=== PATIENT | female | born 1950 | race Caucasian/White ===

== ENCOUNTER 2020-12-21 18:20 | Inpatient (IN) | payer BC ==
[2020-12-21] MEDS ORDERED: methylPREDNISolone NA SUCC 125 MG/2 ML VIAL IVPUSH ONE (20:22)
[2020-12-21] MEDS ORDERED: methylPREDNISolone NA SUCC 125 MG/2 ML VIAL ONE (20:38)
[2020-12-21 21:15] LABS: BASO % 0.8 % (0-2.0); HEMATOCRIT 43.7 % (32.4-45.2); HEMOGLOBIN 14.6 GM/dL (10.7-15.3); LYMPH % 16.2 % (8-40); MCH 30.5 pg (25.7-33.7); MCHC 33.4 g/dl (32.0-36.0); MEAN CELL VOLUME 91.3 fl (80-96); MEAN PLT VOLUME 8.7 fl (7.5-11.1); MONO % 11.7 % (3.8-10.2); NEUT % 67.3 % (42.8-82.8); PLATELET COUNT 468 K/MM3 (134-434); RBC 4.79 M/mm3 (3.60-5.2); RDW 13.7 % (11.6-15.6); WHITE BLOOD COUNT 10.9 K/mm3 (4.0-10.0)
[2020-12-21 21:29] LABS: CHLORIDE 104 mmol/L (98-107); POTASSIUM 4.2 mmol/L (3.5-5.1); SODIUM 140 mmol/L (136-145)
[2020-12-21 21:30] LABS: CALCIUM 9.2 mg/dL (8.5-10.1)
[2020-12-21 21:31] LABS: ALBUMIN 3.1 g/dl (3.4-5.0); ANION GAP 5 MMOL/L (8-16); BLOOD UREA NITROGEN 14.2 mg/dL (7-18); CO2 31 mmol/L (21-32); GLUCOSE,RANDOM 112 mg/dL (74-106); MAGNESIUM 2.2 mg/dL (1.8-2.4)
[2020-12-21 21:34] LABS: CREATININE 0.7 mg/dL (0.55-1.3); SGOT/AST 26 U/L (15-37)
[2020-12-21 21:36] LABS: BILIRUBIN,TOTAL 0.3 mg/dL (0.2-1); TOT PROT 7.1 g/dl (6.4-8.2)
[2020-12-21 21:37] LABS: ALK PHOS 104 U/L (45-117)
[2020-12-21 21:39] LABS: N-TERMINAL BNP 62.9 pg/ml (5-125)
[2020-12-21 21:40] LABS: SGPT/ALT 30 U/L (13-61)
[2020-12-21 22:31] LABS: PH,URINE 5.5 (5.0-8.0); URINE APPEARANCE CLEAR; URINE BILIRUBIN NEGATIVE (NEGATIVE); URINE COLOR YELLOW; URINE GLUCOSE (UA) NEGATIVE (NEGATIVE); URINE KETONE TRACE (NEGATIVE); URINE LEUK ESTERASE NEGATIVE (NEGATIVE); URINE NITRITE NEGATIVE (NEGATIVE); URINE PROTEIN TRACE (NEGATIVE); URINE UROBILINOGEN 0.2 mg/dL (0.2-1.0)
[2020-12-22] MEDS ORDERED: PIPERACILLIN/TAZOB 4.5 GM 4.5 GM in DEXTROSE 5%-WATER 100 ML IVPB ONE (00:45)
[2020-12-22] MEDS ORDERED: VANCOMYCIN 1 GM in D5W (PRE-DOCKED) 1,000 MG/250 ML IVPB ONE (00:45)
[2020-12-22] MEDS ORDERED: VANCOMYCIN 1 GRAM (PRE-DOCKED) 1,000 MG/250 ML BAG IVPB ONE (01:03)
[2020-12-22] MEDS ORDERED: PIPERACILLIN/TAZOB 4.5 GM 4.5 GM/100 ML BAG IVPB ONE (01:03)
[2020-12-22] MEDS ORDERED: ACETAMINOPHEN 325 MG TABLET (FP) PO PRN (02:36)
[2020-12-22] MEDS ORDERED: ONDANSETRON 4 MG/2 ML VIAL IVPUSH PRN (02:39)
[2020-12-22] MEDS ORDERED: ALBUTEROL SO4 HFA INHALER IH PRN (02:40)
[2020-12-22] MEDS ORDERED: ALBUTEROL SO4 2.5/IPRATROPIUM 0.5 INH SOL 3 ML VIAL.NEB. NEB ONE ×4 (03:51→18:14)
[2020-12-22] MEDS: ALBUTEROL SO4 2.5/IPRATROPIUM 0.5 INH SOL 3 ML VIAL.NEB. NEB SCH ×4 (03:57→18:38)
[2020-12-22 08:18] LABS: BASO % 0.3 % (0-2.0); EOS % 0.1 % (0-4.5); HEMATOCRIT 41.2 % (32.4-45.2); HEMOGLOBIN 13.9 GM/dL (10.7-15.3); LYMPH % 8.4 % (8-40); MCH 30.4 pg (25.7-33.7); MCHC 33.9 g/dl (32.0-36.0); MEAN CELL VOLUME 89.7 fl (80-96); MEAN PLT VOLUME 8.7 fl (7.5-11.1); MONO % 2.7 % (3.8-10.2); NEUT % 88.5 % (42.8-82.8); PLATELET COUNT 462 K/MM3 (134-434); RBC 4.59 M/mm3 (3.60-5.2); RDW 13.9 % (11.6-15.6); WHITE BLOOD COUNT 6.9 K/mm3 (4.0-10.0)
[2020-12-22 08:48] LABS: BLOOD UREA NITROGEN 16.7 mg/dL (7-18)
[2020-12-22 08:50] LABS: ALBUMIN 2.8 g/dl (3.4-5.0); MAGNESIUM 2.3 mg/dL (1.8-2.4); POTASSIUM 4.5 mmol/L (3.5-5.1)
[2020-12-22 08:51] LABS: CREATININE 0.7 mg/dL (0.55-1.3); PHOSPHOROUS 3.8 mg/dL (2.5-4.9)
[2020-12-22 08:52] LABS: BILIRUBIN,TOTAL 0.4 mg/dL (0.2-1); TOT PROT 6.9 g/dl (6.4-8.2)
[2020-12-22] MEDS ORDERED: VALSARTAN 80 MG TABLET ONE (09:07)
[2020-12-22] MEDS ORDERED: PARoxetine HCL 10 MG TABLET ONE (09:08)
[2020-12-22] MEDS ORDERED: PIPERACILLIN/TAZOB 3.375 GM 3.375 GM/50 ML BAG IVPB ONE ×2 (09:08→18:14)
[2020-12-22] MEDS ORDERED: ENOXAPARIN NA (PORCINE) 40 MG/0.4 ML DISP.SYRIN SQ ONE (09:10)
[2020-12-22] MEDS ORDERED: ACETAMINOPHEN 325 MG TABLET (FP) ONE (09:10)
[2020-12-22] MEDS ORDERED: methylPREDNISolone NA SUCC 40 MG/1 ML VIAL ONE ×3 (09:11→18:15)
[2020-12-22] MEDS ORDERED: PIPERACILLIN/TAZOB 3.375 GM 3.375 GM in DEXTROSE 5%-WATER - 50 ML IVPB SCH (10:00)
[2020-12-22] MEDS: PARoxetine HCL 10 MG TABLET PO SCH ×3 (10:56→22:33)
[2020-12-22] MEDS: BUDESONIDE/FORMETEROL FUMARATE 160/4.5 mcg INHALER IH SCH ×3 (10:56→22:35)
[2020-12-22] MEDS: ENOXAPARIN NA (PORCINE) 40 MG/0.4 ML DISP.SYRIN SQ SCH (10:56)
[2020-12-22] MEDS: VALSARTAN 80 MG TABLET PO SCH (10:56)
[2020-12-22] MEDS: methylPREDNISolone NA SUCC 40 MG/1 ML VIAL IVPUSH SCH ×2 (10:56→18:38)
[2020-12-22] MEDS ORDERED: PARoxetine HCL 10 MG TABLET PO SCH (11:43)
[2020-12-22] MEDS: PIPERACILLIN/TAZOB 3.375 GM 3.375 GM in DEXTROSE 5%-WATER - 50 ML IVPB SCH (18:38)
[2020-12-22 23:43] VITALS: BMI 25.7
[2020-12-23] MEDS ORDERED: PIPERACILLIN/TAZOBACTAM 3.375 GM VIAL IVPB ONE ×2 (01:26→09:26)
[2020-12-23] MEDS ORDERED: DEXTROSE 5%-WATER - 50 ML IVPB ONE ×2 (01:26→09:27)
[2020-12-23] MEDS: PIPERACILLIN/TAZOB 3.375 GM 3.375 GM in DEXTROSE 5%-WATER - 50 ML IVPB SCH ×2 (01:49→09:31)
[2020-12-23] MEDS: methylPREDNISolone NA SUCC 40 MG/1 ML VIAL IVPUSH SCH ×3 (01:49→17:54)
[2020-12-23] MEDS: ALBUTEROL SO4 2.5/IPRATROPIUM 0.5 INH SOL 3 ML VIAL.NEB. NEB SCH ×4 (07:57→19:20)
[2020-12-23 09:00] LABS: BASO % 0.2 % (0-2.0); HEMATOCRIT 41.1 % (32.4-45.2); HEMOGLOBIN 13.6 GM/dL (10.7-15.3); LYMPH % 5.8 % (8-40); MCH 30.4 pg (25.7-33.7); MCHC 33.2 g/dl (32.0-36.0); MEAN CELL VOLUME 91.5 fl (80-96); MEAN PLT VOLUME 8.8 fl (7.5-11.1); MONO % 4.9 % (3.8-10.2); NEUT % 89.1 % (42.8-82.8); PLATELET COUNT 525 K/MM3 (134-434); RBC 4.49 M/mm3 (3.60-5.2); RDW 13.7 % (11.6-15.6); WHITE BLOOD COUNT 16.3 K/mm3 (4.0-10.0)
[2020-12-23 09:17] LABS: POTASSIUM 4.5 mmol/L (3.5-5.1)
[2020-12-23 09:20] LABS: BLOOD UREA NITROGEN 20.2 mg/dL (7-18); CALCIUM 9.3 mg/dL (8.5-10.1); MAGNESIUM 2.6 mg/dL (1.8-2.4)
[2020-12-23 09:23] LABS: CREATININE 0.7 mg/dL (0.55-1.3)
[2020-12-23 09:25] LABS: BILIRUBIN,TOTAL 0.4 mg/dL (0.2-1); TOT PROT 7.2 g/dl (6.4-8.2)
[2020-12-23] MEDS: VALSARTAN 80 MG TABLET PO SCH (09:30)
[2020-12-23] MEDS: ENOXAPARIN NA (PORCINE) 40 MG/0.4 ML DISP.SYRIN SQ SCH (09:30)
[2020-12-23] MEDS: BUDESONIDE/FORMETEROL FUMARATE 160/4.5 mcg INHALER IH SCH ×2 (09:31→21:52)
[2020-12-23] MEDS ORDERED: PIPERACILLIN/TAZOB 3.375 GM 3.375 GM in DEXTROSE 5%-WATER - 50 ML IVPB SCH (10:00)
[2020-12-23] MEDS: PANTOPRAZOLE 40 MG TABLET PO SCH (13:59)
[2020-12-23] MEDS ORDERED: DEXTROSE 5%-WATER 100 ML IVPB ONE (17:36)
[2020-12-23] MEDS: CEFTRIAXONE 2 GM in DEXTROSE 5%-WATER 2 GM/100 ML BAG IVPB SCH (17:53)
[2020-12-23] MEDS: PARoxetine HCL 10 MG TABLET PO SCH (21:52)
[2020-12-24] MEDS: methylPREDNISolone NA SUCC 40 MG/1 ML VIAL IVPUSH SCH ×3 (01:57→17:40)
[2020-12-24] MEDS ORDERED: DEXTROSE 5%-WATER 100 ML IVPB ONE (08:38)
[2020-12-24] MEDS: ALBUTEROL SO4 2.5/IPRATROPIUM 0.5 INH SOL 3 ML VIAL.NEB. NEB SCH ×4 (08:42→20:40)
[2020-12-24 09:03] LABS: BASO % 0.2 % (0-2.0); LYMPH % 7.7 % (8-40); MCH 30.5 pg (25.7-33.7); MCHC 33.5 g/dl (32.0-36.0); MEAN CELL VOLUME 91.3 fl (80-96); MEAN PLT VOLUME 8.6 fl (7.5-11.1); MONO % 5.4 % (3.8-10.2); NEUT % 86.7 % (42.8-82.8); PLATELET COUNT 458 K/MM3 (134-434); RBC 4.27 M/mm3 (3.60-5.2); RDW 13.4 % (11.6-15.6); WHITE BLOOD COUNT 15.1 K/mm3 (4.0-10.0)
[2020-12-24] MEDS: BUDESONIDE/FORMETEROL FUMARATE 160/4.5 mcg INHALER IH SCH ×2 (09:04→21:55)
[2020-12-24] MEDS: CEFTRIAXONE 2 GM in DEXTROSE 5%-WATER 2 GM/100 ML BAG IVPB SCH (09:04)
[2020-12-24] MEDS: ENOXAPARIN NA (PORCINE) 40 MG/0.4 ML DISP.SYRIN SQ SCH (09:04)
[2020-12-24] MEDS: VALSARTAN 80 MG TABLET PO SCH (09:04)
[2020-12-24] MEDS: PANTOPRAZOLE 40 MG TABLET PO SCH (09:04)
[2020-12-24 09:22] LABS: POTASSIUM 4.5 mmol/L (3.5-5.1)
[2020-12-24 09:25] LABS: CALCIUM 8.8 mg/dL (8.5-10.1)
[2020-12-24 09:26] LABS: ALBUMIN 2.8 g/dl (3.4-5.0); BLOOD UREA NITROGEN 20.9 mg/dL (7-18); MAGNESIUM 2.5 mg/dL (1.8-2.4)
[2020-12-24 09:29] LABS: CREATININE 0.7 mg/dL (0.55-1.3)
[2020-12-24 09:31] LABS: BILIRUBIN,TOTAL 0.3 mg/dL (0.2-1); TOT PROT 6.4 g/dl (6.4-8.2)
[2020-12-24] MEDS: PARoxetine HCL 10 MG TABLET PO SCH (21:55)
[2020-12-24] MEDS: guaiFENesin/CODEINE 5 ML UNIT-DOSE CUPS PO PRN (21:55)
[2020-12-25] MEDS: methylPREDNISolone NA SUCC 40 MG/1 ML VIAL IVPUSH SCH ×3 (01:42→17:37)
[2020-12-25] MEDS: ALBUTEROL SO4 2.5/IPRATROPIUM 0.5 INH SOL 3 ML VIAL.NEB. NEB SCH ×4 (08:44→19:40)
[2020-12-25 09:21] LABS: BASO % 0.3 % (0-2.0); HEMATOCRIT 40.1 % (32.4-45.2); HEMOGLOBIN 13.7 GM/dL (10.7-15.3); LYMPH % 9.8 % (8-40); MCH 30.8 pg (25.7-33.7); MEAN CELL VOLUME 90.5 fl (80-96); MEAN PLT VOLUME 8.5 fl (7.5-11.1); MONO % 6.1 % (3.8-10.2); NEUT % 83.8 % (42.8-82.8); PLATELET COUNT 462 K/MM3 (134-434); RBC 4.43 M/mm3 (3.60-5.2); RDW 13.9 % (11.6-15.6); WHITE BLOOD COUNT 15.1 K/mm3 (4.0-10.0)
[2020-12-25 09:27] LABS: POTASSIUM 4.6 mmol/L (3.5-5.1)
[2020-12-25 09:35] LABS: CALCIUM 9.1 mg/dL (8.5-10.1)
[2020-12-25 09:36] LABS: ALBUMIN 2.9 g/dl (3.4-5.0); BLOOD UREA NITROGEN 19.1 mg/dL (7-18); MAGNESIUM 2.8 mg/dL (1.8-2.4)
[2020-12-25 09:39] LABS: CREATININE 0.6 mg/dL (0.55-1.3)
[2020-12-25 09:40] LABS: BILIRUBIN,TOTAL 0.5 mg/dL (0.2-1); TOT PROT 6.8 g/dl (6.4-8.2)
[2020-12-25] MEDS ORDERED: DEXTROSE 5%-WATER 100 ML IVPB ONE (09:49)
[2020-12-25] MEDS: CEFTRIAXONE 2 GM in DEXTROSE 5%-WATER 2 GM/100 ML BAG IVPB SCH (09:59)
[2020-12-25] MEDS: PANTOPRAZOLE 40 MG TABLET PO SCH (10:06)
[2020-12-25] MEDS: ENOXAPARIN NA (PORCINE) 40 MG/0.4 ML DISP.SYRIN SQ SCH (10:06)
[2020-12-25] MEDS: VALSARTAN 80 MG TABLET PO SCH (10:06)
[2020-12-25] MEDS: BUDESONIDE/FORMETEROL FUMARATE 160/4.5 mcg INHALER IH SCH ×2 (10:06→22:10)
[2020-12-25 10:30] LABS: ANISOCYTOSIS 1+; PLATELET ESTIMATE NORMAL
[2020-12-25] MEDS ORDERED: PT OWN MED DRAWER 7, Y5N ONE ×2 (14:20→21:58)
[2020-12-25] MEDS: FLUCONAZOLE 100 MG TABLET (UD) PO SCH (14:33)
[2020-12-25] MEDS ORDERED: LIP BALM (CHAPSTICK) TP PRN (17:42)
[2020-12-25] MEDS ORDERED: NYSTATIN 500,000 UNITS/5 ML SUSPENSION PO SCH ×2 (18:00)
[2020-12-25] MEDS: NYSTATIN 500,000 UNITS/5 ML SUSPENSION PO SCH (18:22)
[2020-12-25] MEDS: PARoxetine HCL 10 MG TABLET PO SCH (22:10)
[2020-12-25] MEDS: guaiFENesin/CODEINE 5 ML UNIT-DOSE CUPS PO PRN (22:13)
[2020-12-26] MEDS ORDERED: PT OWN MED DRAWER 7, Y5N ONE ×3 (00:24→17:20)
[2020-12-26] MEDS: NYSTATIN 500,000 UNITS/5 ML SUSPENSION PO SCH ×3 (00:27→17:35)
[2020-12-26] MEDS: methylPREDNISolone NA SUCC 40 MG/1 ML VIAL IVPUSH SCH ×4 (02:40→21:21)
[2020-12-26] MEDS: ALBUTEROL SO4 2.5/IPRATROPIUM 0.5 INH SOL 3 ML VIAL.NEB. NEB SCH ×4 (08:40→19:53)
[2020-12-26 08:57] LABS: BASO % 1.1 % (0-2.0); EOS % 0.1 % (0-4.5); HEMATOCRIT 40.9 % (32.4-45.2); HEMOGLOBIN 13.5 GM/dL (10.7-15.3); LYMPH % 10.3 % (8-40); MCH 30.3 pg (25.7-33.7); MCHC 33.1 g/dl (32.0-36.0); MEAN CELL VOLUME 91.6 fl (80-96); MEAN PLT VOLUME 8.9 fl (7.5-11.1); MONO % 5.4 % (3.8-10.2); NEUT % 83.1 % (42.8-82.8); PLATELET COUNT 436 K/MM3 (134-434); RBC 4.46 M/mm3 (3.60-5.2); RDW 13.6 % (11.6-15.6)
[2020-12-26 09:18] LABS: POTASSIUM 4.5 mmol/L (3.5-5.1)
[2020-12-26 09:36] LABS: ALBUMIN 2.9 g/dl (3.4-5.0); CALCIUM 8.6 mg/dL (8.5-10.1)
[2020-12-26 09:37] LABS: MAGNESIUM 2.7 mg/dL (1.8-2.4)
[2020-12-26 09:38] LABS: BLOOD UREA NITROGEN 17.9 mg/dL (7-18); CREATININE 0.7 mg/dL (0.55-1.3)
[2020-12-26 09:40] LABS: BILIRUBIN,TOTAL 0.4 mg/dL (0.2-1); TOT PROT 6.4 g/dl (6.4-8.2)
[2020-12-26] MEDS ORDERED: DEXTROSE 5%-WATER 100 ML IVPB ONE (11:00)
[2020-12-26 11:02] LABS: ANISOCYTOSIS 0; MACROCYTOSIS 0; PLATELET ESTIMATE NORMAL
[2020-12-26] MEDS: CEFTRIAXONE 2 GM in DEXTROSE 5%-WATER 2 GM/100 ML BAG IVPB SCH (11:25)
[2020-12-26] MEDS: FLUCONAZOLE 100 MG TABLET (UD) PO SCH (11:29)
[2020-12-26] MEDS: ENOXAPARIN NA (PORCINE) 40 MG/0.4 ML DISP.SYRIN SQ SCH (11:30)
[2020-12-26] MEDS: VALSARTAN 80 MG TABLET PO SCH (11:30)
[2020-12-26] MEDS: PANTOPRAZOLE 40 MG TABLET PO SCH (11:30)
[2020-12-26] MEDS: BUDESONIDE/FORMETEROL FUMARATE 160/4.5 mcg INHALER IH SCH ×2 (11:33→21:23)
[2020-12-26] MEDS: PARoxetine HCL 10 MG TABLET PO SCH (21:21)
[2020-12-26] MEDS ORDERED: methylPREDNISolone NA SUCC 40 MG/1 ML VIAL IVPUSH SCH (22:00)
[2020-12-27] MEDS: NYSTATIN 500,000 UNITS/5 ML SUSPENSION PO SCH ×3 (05:16→11:49)
[2020-12-27] MEDS: ALBUTEROL SO4 2.5/IPRATROPIUM 0.5 INH SOL 3 ML VIAL.NEB. NEB SCH ×2 (07:49→11:06)
[2020-12-27 08:42] LABS: BASO % 0.7 % (0-2.0); HEMATOCRIT 40.3 % (32.4-45.2); HEMOGLOBIN 13.5 GM/dL (10.7-15.3); LYMPH % 12.3 % (8-40); MCH 30.4 pg (25.7-33.7); MCHC 33.7 g/dl (32.0-36.0); MEAN CELL VOLUME 90.4 fl (80-96); MEAN PLT VOLUME 8.8 fl (7.5-11.1); MONO % 7.6 % (3.8-10.2); NEUT % 79.4 % (42.8-82.8); PLATELET COUNT 428 K/MM3 (134-434); RBC 4.45 M/mm3 (3.60-5.2); RDW 13.8 % (11.6-15.6); WHITE BLOOD COUNT 13.9 K/mm3 (4.0-10.0)
[2020-12-27 09:06] LABS: POTASSIUM 4.5 mmol/L (3.5-5.1)
[2020-12-27 09:09] LABS: ALBUMIN 2.9 g/dl (3.4-5.0); BLOOD UREA NITROGEN 20.8 mg/dL (7-18)
[2020-12-27 09:10] LABS: CREATININE 0.6 mg/dL (0.55-1.3)
[2020-12-27 09:13] LABS: BILIRUBIN,TOTAL 0.4 mg/dL (0.2-1); TOT PROT 6.5 g/dl (6.4-8.2)
[2020-12-27 09:14] LABS: CALCIUM 8.7 mg/dL (8.5-10.1)
[2020-12-27 09:16] LABS: MAGNESIUM 2.7 mg/dL (1.8-2.4)
[2020-12-27] MEDS ORDERED: DEXTROSE 5%-WATER 100 ML IVPB ONE (10:02)
[2020-12-27] MEDS: PANTOPRAZOLE 40 MG TABLET PO SCH (10:13)
[2020-12-27] MEDS: ENOXAPARIN NA (PORCINE) 40 MG/0.4 ML DISP.SYRIN SQ SCH ×2 (10:13→10:23)
[2020-12-27] MEDS: CEFTRIAXONE 2 GM in DEXTROSE 5%-WATER 2 GM/100 ML BAG IVPB SCH (10:13)
[2020-12-27] MEDS: VALSARTAN 80 MG TABLET PO SCH (10:13)
[2020-12-27] MEDS: BUDESONIDE/FORMETEROL FUMARATE 160/4.5 mcg INHALER IH SCH (10:14)
[2020-12-27] MEDS ORDERED: PT OWN MED DRAWER 7, Y5N ONE (10:15)
[2020-12-27] MEDS: FLUCONAZOLE 100 MG TABLET (UD) PO SCH (10:16)
[2020-12-27 10:18] VITALS: BP 149/77; PULSE 98; TEMP 98.1
[2020-12-27] MEDS ORDERED: FAMOTIDINE 20 MG TABLET PO SCH ×2 (10:30→22:00)
[2020-12-27] MEDS ORDERED: predniSONE 20 MG TABLET (UD) PO SCH (10:30)
[2020-12-27] MEDS: methylPREDNISolone NA SUCC 40 MG/1 ML VIAL IVPUSH SCH (11:50)
[2020-12-27 12:11] LABS: ANISOCYTOSIS 0; HELMET CELLS 0; HOWELL-JOLLY BODIES 0; MACROCYTOSIS 0; OVALOCYTE 0; PLATELET ESTIMATE NORMAL; ROULEAU 0; SICKELED CELLS 0; TARGET CELLS 0; TEAR DROP CELLS 0; TOXIC GRANULATION 0
[2020-12-27] MEDS ORDERED: CEFUROXIME AXETIL 500 MG TABLET PO SCH ×2 (17:30→22:00)
== END 2020-12-27 14:41 | disposition home or self-care (01) | DRG 190 ==
LOC: JER 18:20 → JERBED 12-22 01:12 → J6S 12-22 21:22
PROVIDERS: ADMIT Hospitalist; ATTEND Nurse Practitioner Family
DX: J44.0 Chronic obstructive pulmonary disease with (acute) lower respiratory infection (principal); J18.9 Pneumonia, unspecified organism; J96.21 Acute and chronic respiratory failure with hypoxia; I10 Essential (primary) hypertension; J44.1 Chronic obstructive pulmonary disease with (acute) exacerbation; E78.5 Hyperlipidemia, unspecified; I27.20 Pulmonary hypertension, unspecified; D72.829 Elevated white blood cell count, unspecified; F41.9 Anxiety disorder, unspecified; R00.0 Tachycardia, unspecified; Z99.81 Dependence on supplemental oxygen
CPT/HCPCS: 36415; 71045-TC-FY; 71275-TC; 80053; 81003; 82550; 83735; 83880; 84100; 84484; 85025; 85379; 87070; 87077; 87086; 87205; 87804; 87899; 93005; 93010; 94640; 97116-GP; 97161-GP; 99285-25; C9803; U0003; U0005

== ENCOUNTER 2021-12-27 12:49 | Inpatient (IN) | payer OTHER ==
[2021-12-27 12:54] VITALS: BMI 29.0
[2021-12-27] MEDS ORDERED: methylPREDNISolone NA SUCC 125 MG/2 ML VIAL IVPUSH ONE (13:32)
[2021-12-27] MEDS ORDERED: methylPREDNISolone NA SUCC 125 MG/2 ML VIAL ONE (13:38)
[2021-12-27 13:46] LABS: ARTERIAL BLOOD GAS BASE EXCESS 2.3 mmol/L (-2-2); ARTERIAL BLOOD GAS PO2 174.8 mmHg (80-100); ARTERIAL BLOOD GAS pH 7.304 (7.350-7.450)
[2021-12-27 14:29] LABS: BASO % 0.9 % (0-2.0); HEMATOCRIT 42.1 % (32.4-45.2); HEMOGLOBIN 13.6 GM/dL (10.7-15.3); LYMPH % 3.8 % (8-40); MCHC 32.4 g/dl (32.0-36.0); MEAN CELL VOLUME 92.8 fl (80-96); MEAN PLT VOLUME 8.8 fl (7.5-11.1); MONO % 5.5 % (3.8-10.2); NEUT % 88.8 % (42.8-82.8); PLATELET COUNT 281 10^3/uL (134-434); RBC 4.54 M/mm3 (3.60-5.2); RDW 14.3 % (11.6-15.6); WHITE BLOOD COUNT 10.2 K/mm3 (4.0-10.0)
[2021-12-27 14:42] LABS: ALBUMIN 3.5 g/dl (3.4-5.0); BLOOD UREA NITROGEN 9.6 mg/dL (7-18); CALCIUM 8.4 mg/dL (8.5-10.1)
[2021-12-27 14:46] LABS: CREATININE 0.6 mg/dL (0.55-1.3)
[2021-12-27 14:48] LABS: BILIRUBIN,TOTAL 0.3 mg/dL (0.2-1); TOT PROT 6.8 g/dl (6.4-8.2)
[2021-12-27] MEDS ORDERED: OSELTAMIVIR PHOSPHATE 75 MG CAPSULE PO ONE (15:08)
[2021-12-27] MEDS ORDERED: AZITHROMYCIN IVPB 500 MG in DEXTROSE 5%-WATER - 250 ML IVPB ONE (15:11)
[2021-12-27] MEDS ORDERED: CEFTRIAXONE 1 GM in DEXTROSE 5%-WATER - 50 ML IVPB ONE (15:11)
[2021-12-27] MEDS ORDERED: CEFTRIAXONE 1 GM/50 ML BAG ONE (15:19)
[2021-12-27] MEDS ORDERED: AZITHROMYCIN IVPB 500 MG/250 ML BAG IVPB ONE (15:19)
[2021-12-27] MEDS: ALBUTEROL SO4 2.5/IPRATROPIUM 0.5 INH SOL 3 ML VIAL.NEB. NEB SCH ×3 (15:31→15:36)
[2021-12-27] MEDS ORDERED: ALBUTEROL SO4 2.5/IPRATROPIUM 0.5 INH SOL 3 ML VIAL.NEB. NEB ONE (15:35)
[2021-12-27] MEDS ORDERED: methylPREDNISolone NA SUCC 40 MG/1 ML VIAL IVPUSH SCH (16:15)
[2021-12-27] MEDS ORDERED: FAMOTIDINE 20 MG/50 ML IVPB 20 MG/50 ML MG IVPB ONE ×2 (16:33→16:38)
[2021-12-27] MEDS: PARoxetine HCL 20 MG TABLET PO SCH (17:08)
[2021-12-27] MEDS: TIOTROPIUM/OLODATEROL HCL (STIOLTO) 4 GM INHALER IH SCH (17:08)
[2021-12-27] MEDS: OSELTAMIVIR PHOSPHATE 75 MG CAPSULE PO SCH (22:19)
[2021-12-27] MEDS: ROSUVASTATIN CA 10 MG TABLET PO SCH (22:19)
[2021-12-27] MEDS: ALBUTEROL SO4 2.5/IPRATROPIUM 0.5 INH SOL 3 ML VIAL.NEB. NEB PRN (22:38)
[2021-12-28] MEDS: methylPREDNISolone NA SUCC 40 MG/1 ML VIAL IVPUSH SCH ×3 (02:36→17:51)
[2021-12-28 07:35] LABS: BASO % 0.2 % (0-2.0); HEMATOCRIT 41.2 % (32.4-45.2); HEMOGLOBIN 13.4 GM/dL (10.7-15.3); LYMPH % 6.1 % (8-40); MCH 30.3 pg (25.7-33.7); MCHC 32.6 g/dl (32.0-36.0); MEAN CELL VOLUME 92.9 fl (80-96); MEAN PLT VOLUME 8.8 fl (7.5-11.1); MONO % 5.4 % (3.8-10.2); NEUT % 88.3 % (42.8-82.8); PLATELET COUNT 277 10^3/uL (134-434); RBC 4.43 M/mm3 (3.60-5.2); RDW 14.1 % (11.6-15.6); WHITE BLOOD COUNT 7.1 K/mm3 (4.0-10.0)
[2021-12-28 07:53] LABS: CALCIUM 8.6 mg/dL (8.5-10.1)
[2021-12-28 07:54] LABS: ALBUMIN 3.5 g/dl (3.4-5.0); BLOOD UREA NITROGEN 15.4 mg/dL (7-18); MAGNESIUM 2.6 mg/dL (1.8-2.4)
[2021-12-28 07:57] LABS: CREATININE 0.5 mg/dL (0.55-1.3)
[2021-12-28 07:59] LABS: BILIRUBIN,TOTAL 0.3 mg/dL (0.2-1)
[2021-12-28] MEDS: ALBUTEROL SO4 2.5/IPRATROPIUM 0.5 INH SOL 3 ML VIAL.NEB. NEB PRN ×2 (08:14→17:16)
[2021-12-28] MEDS ORDERED: AZITHROMYCIN IVPB 500 MG in DEXTROSE 5%-WATER - 250 ML IVPB SCH (10:00)
[2021-12-28] MEDS ORDERED: PHENOL 177 ML SPRAY BOTTLE MM PRN (10:04)
[2021-12-28] MEDS ORDERED: BENZOCAINE/MENTH/CETYLPYRD CL 1 EACH LOZENGE MM PRN (10:04)
[2021-12-28] MEDS: ACETAMINOPHEN 325 MG TABLET (FP) PO PRN (10:17)
[2021-12-28] MEDS: ENOXAPARIN NA (PORCINE) 40 MG/0.4 ML DISP.SYRIN SQ SCH (10:18)
[2021-12-28] MEDS: VALSARTAN 40 MG TABLET PO SCH (10:19)
[2021-12-28] MEDS: OSELTAMIVIR PHOSPHATE 75 MG CAPSULE PO SCH ×2 (10:20→21:11)
[2021-12-28] MEDS ORDERED: AZITHROMYCIN IVPB 500 MG/250 ML BAG IVPB SCH (11:09)
[2021-12-28] MEDS: AZITHROMYCIN IVPB 500 MG/250 ML BAG IVPB SCH (11:30)
[2021-12-28] MEDS: NYSTATIN 500,000 UNITS/5 ML SUSPENSION PO SCH ×2 (11:30→17:51)
[2021-12-28] MEDS: guaiFENesin 200 MG/10 ML 10 ML UNIT-DOSE CUPS PO PRN (11:30)
[2021-12-28] MEDS: BUDESONIDE/FORMETEROL FUMARATE 160/4.5 mcg INHALER IH SCH ×2 (11:42→21:24)
[2021-12-28] MEDS: PARoxetine HCL 20 MG TABLET PO SCH ×2 (12:22→21:24)
[2021-12-28] MEDS: TIOTROPIUM/OLODATEROL HCL (STIOLTO) 4 GM INHALER IH SCH (16:11)
[2021-12-28] MEDS: ROSUVASTATIN CA 10 MG TABLET PO SCH (21:11)
[2021-12-29] MEDS: NYSTATIN 500,000 UNITS/5 ML SUSPENSION PO SCH ×4 (01:05→17:23)
[2021-12-29] MEDS: methylPREDNISolone NA SUCC 40 MG/1 ML VIAL IVPUSH SCH ×3 (01:43→17:31)
[2021-12-29] MEDS: ALBUTEROL SO4 HFA INHALER IH PRN (06:34)
[2021-12-29 09:18] LABS: HEMOGLOBIN 13.3 GM/dL (10.7-15.3); LYMPH % 4.9 % (8-40); MCH 30.6 pg (25.7-33.7); MCHC 33.2 g/dl (32.0-36.0); MEAN PLT VOLUME 8.6 fl (7.5-11.1); MONO % 8.1 % (3.8-10.2); PLATELET COUNT 301 10^3/uL (134-434); RBC 4.34 M/mm3 (3.60-5.2); WHITE BLOOD COUNT 12.3 K/mm3 (4.0-10.0)
[2021-12-29 09:40] LABS: ALBUMIN 3.4 g/dl (3.4-5.0); BLOOD UREA NITROGEN 25.6 mg/dL (7-18); CALCIUM 8.8 mg/dL (8.5-10.1); MAGNESIUM 2.7 mg/dL (1.8-2.4)
[2021-12-29 09:43] LABS: CREATININE 0.6 mg/dL (0.55-1.3)
[2021-12-29 09:44] LABS: BILIRUBIN,TOTAL 0.3 mg/dL (0.2-1); TOT PROT 6.9 g/dl (6.4-8.2)
[2021-12-29] MEDS: VALSARTAN 40 MG TABLET PO SCH (10:21)
[2021-12-29] MEDS: ENOXAPARIN NA (PORCINE) 40 MG/0.4 ML DISP.SYRIN SQ SCH (10:21)
[2021-12-29] MEDS: BUDESONIDE/FORMETEROL FUMARATE 160/4.5 mcg INHALER IH SCH ×2 (10:22→21:54)
[2021-12-29] MEDS: AZITHROMYCIN IVPB 500 MG/250 ML BAG IVPB SCH (10:22)
[2021-12-29] MEDS: OSELTAMIVIR PHOSPHATE 75 MG CAPSULE PO SCH ×2 (10:23→21:53)
[2021-12-29] MEDS: PARoxetine HCL 20 MG TABLET PO SCH ×2 (10:58→21:53)
[2021-12-29] MEDS: ALBUTEROL SO4 2.5/IPRATROPIUM 0.5 INH SOL 3 ML VIAL.NEB. NEB PRN (16:01)
[2021-12-29] MEDS: TIOTROPIUM/OLODATEROL HCL (STIOLTO) 4 GM INHALER IH SCH (18:07)
[2021-12-29] MEDS: ALBUTEROL SO4 0.083% IH SOL 2.5 MG/3 ML VIAL.NEB. NEB SCH (20:13)
[2021-12-29] MEDS: ROSUVASTATIN CA 10 MG TABLET PO SCH (21:53)
[2021-12-30] MEDS: NYSTATIN 500,000 UNITS/5 ML SUSPENSION PO SCH ×4 (00:47→17:52)
[2021-12-30] MEDS: methylPREDNISolone NA SUCC 40 MG/1 ML VIAL IVPUSH SCH ×3 (01:35→17:52)
[2021-12-30] MEDS: ALBUTEROL SO4 0.083% IH SOL 2.5 MG/3 ML VIAL.NEB. NEB SCH ×3 (07:02→20:14)
[2021-12-30 08:50] LABS: BASO % 0.2 % (0-2.0); HEMATOCRIT 40.7 % (32.4-45.2); HEMOGLOBIN 13.2 GM/dL (10.7-15.3); LYMPH % 3.5 % (8-40); MCHC 32.4 g/dl (32.0-36.0); MEAN CELL VOLUME 92.5 fl (80-96); MEAN PLT VOLUME 9.2 fl (7.5-11.1); MONO % 6.1 % (3.8-10.2); NEUT % 90.2 % (42.8-82.8); PLATELET COUNT 303 10^3/uL (134-434); RDW 14.2 % (11.6-15.6); WHITE BLOOD COUNT 13.7 K/mm3 (4.0-10.0)
[2021-12-30 09:16] LABS: ALBUMIN 3.2 g/dl (3.4-5.0); CALCIUM 7.9 mg/dL (8.5-10.1); MAGNESIUM 2.7 mg/dL (1.8-2.4)
[2021-12-30 09:17] LABS: BLOOD UREA NITROGEN 24.1 mg/dL (7-18)
[2021-12-30 09:19] LABS: CREATININE 0.6 mg/dL (0.55-1.3)
[2021-12-30 09:21] LABS: BILIRUBIN,TOTAL 0.2 mg/dL (0.2-1); TOT PROT 6.6 g/dl (6.4-8.2)
[2021-12-30] MEDS: VALSARTAN 40 MG TABLET PO SCH (09:44)
[2021-12-30] MEDS: ENOXAPARIN NA (PORCINE) 40 MG/0.4 ML DISP.SYRIN SQ SCH (09:44)
[2021-12-30] MEDS: AZITHROMYCIN IVPB 500 MG/250 ML BAG IVPB SCH (09:45)
[2021-12-30] MEDS: BUDESONIDE/FORMETEROL FUMARATE 160/4.5 mcg INHALER IH SCH ×2 (09:45→21:06)
[2021-12-30] MEDS: OSELTAMIVIR PHOSPHATE 75 MG CAPSULE PO SCH ×2 (09:46→21:05)
[2021-12-30] MEDS: TIOTROPIUM/OLODATEROL HCL (STIOLTO) 4 GM INHALER IH SCH (16:47)
[2021-12-30] MEDS: PARoxetine HCL 20 MG TABLET PO SCH (21:05)
[2021-12-30] MEDS: ROSUVASTATIN CA 10 MG TABLET PO SCH (21:05)
[2021-12-30] MEDS: ACETAMINOPHEN 325 MG TABLET (FP) PO PRN (21:06)
[2021-12-30] MEDS: guaiFENesin 200 MG/10 ML 10 ML UNIT-DOSE CUPS PO PRN (21:06)
[2021-12-31] MEDS: methylPREDNISolone NA SUCC 40 MG/1 ML VIAL IVPUSH SCH ×3 (01:55→17:52)
[2021-12-31] MEDS: NYSTATIN 500,000 UNITS/5 ML SUSPENSION PO SCH ×4 (01:55→17:52)
[2021-12-31] MEDS: ALBUTEROL SO4 HFA INHALER IH PRN (03:16)
[2021-12-31] MEDS: ENOXAPARIN NA (PORCINE) 40 MG/0.4 ML DISP.SYRIN SQ SCH (09:18)
[2021-12-31] MEDS: OSELTAMIVIR PHOSPHATE 75 MG CAPSULE PO SCH ×2 (09:19→21:03)
[2021-12-31] MEDS: VALSARTAN 40 MG TABLET PO SCH (09:19)
[2021-12-31] MEDS: AZITHROMYCIN IVPB 500 MG/250 ML BAG IVPB SCH (09:20)
[2021-12-31] MEDS: BUDESONIDE/FORMETEROL FUMARATE 160/4.5 mcg INHALER IH SCH ×2 (09:20→21:03)
[2021-12-31 09:37] LABS: BASO % 0.1 % (0-2.0); HEMATOCRIT 42.4 % (32.4-45.2); HEMOGLOBIN 13.8 GM/dL (10.7-15.3); LYMPH % 4.3 % (8-40); MCH 30.1 pg (25.7-33.7); MCHC 32.5 g/dl (32.0-36.0); MEAN CELL VOLUME 92.7 fl (80-96); MEAN PLT VOLUME 8.9 fl (7.5-11.1); MONO % 8.2 % (3.8-10.2); NEUT % 87.4 % (42.8-82.8); PLATELET COUNT 302 10^3/uL (134-434); RBC 4.57 M/mm3 (3.60-5.2); RDW 13.9 % (11.6-15.6); WHITE BLOOD COUNT 12.3 K/mm3 (4.0-10.0)
[2021-12-31 09:59] LABS: CREATININE 0.6 mg/dL (0.55-1.3)
[2021-12-31 10:00] LABS: ALBUMIN 3.3 g/dl (3.4-5.0); BLOOD UREA NITROGEN 23.4 mg/dL (7-18)
[2021-12-31 10:02] LABS: BILIRUBIN,TOTAL 0.3 mg/dL (0.2-1); CALCIUM 8.2 mg/dL (8.5-10.1); MAGNESIUM 2.9 mg/dL (1.8-2.4); TOT PROT 6.7 g/dl (6.4-8.2)
[2021-12-31] MEDS: ALBUTEROL SO4 0.083% IH SOL 2.5 MG/3 ML VIAL.NEB. NEB SCH ×3 (11:05→20:15)
[2021-12-31] MEDS: TIOTROPIUM/OLODATEROL HCL (STIOLTO) 4 GM INHALER IH SCH (17:56)
[2021-12-31] MEDS ORDERED: MAG HYDROX/AL HYDROX/SIMETH 30 ML UNIT-DOSE CUP PO ONE (19:48)
[2021-12-31] MEDS: guaiFENesin 200 MG/10 ML 10 ML UNIT-DOSE CUPS PO PRN (21:03)
[2021-12-31] MEDS: ROSUVASTATIN CA 10 MG TABLET PO SCH (21:03)
[2021-12-31] MEDS: PARoxetine HCL 20 MG TABLET PO SCH (21:03)
[2022-01-01] MEDS: NYSTATIN 500,000 UNITS/5 ML SUSPENSION PO SCH ×4 (02:13→17:48)
[2022-01-01] MEDS: methylPREDNISolone NA SUCC 40 MG/1 ML VIAL IVPUSH SCH ×4 (02:13→21:38)
[2022-01-01] MEDS: ALBUTEROL SO4 0.083% IH SOL 2.5 MG/3 ML VIAL.NEB. NEB SCH ×3 (08:35→20:40)
[2022-01-01] MEDS: VALSARTAN 40 MG TABLET PO SCH (10:39)
[2022-01-01] MEDS: ENOXAPARIN NA (PORCINE) 40 MG/0.4 ML DISP.SYRIN SQ SCH (10:39)
[2022-01-01] MEDS: OSELTAMIVIR PHOSPHATE 75 MG CAPSULE PO SCH (10:40)
[2022-01-01] MEDS: BUDESONIDE/FORMETEROL FUMARATE 160/4.5 mcg INHALER IH SCH ×2 (10:42→21:38)
[2022-01-01] MEDS: TIOTROPIUM/OLODATEROL HCL (STIOLTO) 4 GM INHALER IH SCH (16:58)
[2022-01-01] MEDS: ROSUVASTATIN CA 10 MG TABLET PO SCH (21:38)
[2022-01-01] MEDS: PARoxetine HCL 20 MG TABLET PO SCH (21:38)
[2022-01-02] MEDS: methylPREDNISolone NA SUCC 40 MG/1 ML VIAL IVPUSH SCH ×3 (05:50→21:36)
[2022-01-02] MEDS: NYSTATIN 500,000 UNITS/5 ML SUSPENSION PO SCH ×4 (05:50→17:48)
[2022-01-02] MEDS: ALBUTEROL SO4 0.083% IH SOL 2.5 MG/3 ML VIAL.NEB. NEB SCH ×3 (07:27→21:10)
[2022-01-02 10:13] LABS: BASO % 0.2 % (0-2.0); HEMATOCRIT 44.6 % (32.4-45.2); HEMOGLOBIN 14.2 GM/dL (10.7-15.3); LYMPH % 3.2 % (8-40); MCH 29.7 pg (25.7-33.7); MCHC 31.9 g/dl (32.0-36.0); MEAN CELL VOLUME 92.9 fl (80-96); MEAN PLT VOLUME 9.3 fl (7.5-11.1); MONO % 6.6 % (3.8-10.2); PLATELET COUNT 320 10^3/uL (134-434); RDW 13.9 % (11.6-15.6); WHITE BLOOD COUNT 13.3 K/mm3 (4.0-10.0)
[2022-01-02] MEDS: VALSARTAN 40 MG TABLET PO SCH (10:31)
[2022-01-02] MEDS: BUDESONIDE/FORMETEROL FUMARATE 160/4.5 mcg INHALER IH SCH ×2 (10:31→21:38)
[2022-01-02] MEDS: ENOXAPARIN NA (PORCINE) 40 MG/0.4 ML DISP.SYRIN SQ SCH (10:31)
[2022-01-02] MEDS: PANTOPRAZOLE 40 MG TABLET PO SCH (10:31)
[2022-01-02 10:43] LABS: CALCIUM 8.3 mg/dL (8.5-10.1)
[2022-01-02 10:44] LABS: ALBUMIN 3.1 g/dl (3.4-5.0); MAGNESIUM 2.8 mg/dL (1.8-2.4)
[2022-01-02 10:45] LABS: CREATININE 0.8 mg/dL (0.55-1.3)
[2022-01-02 10:46] LABS: BILIRUBIN,TOTAL 0.5 mg/dL (0.2-1); BLOOD UREA NITROGEN 29.6 mg/dL (7-18)
[2022-01-02 10:47] LABS: TOT PROT 6.6 g/dl (6.4-8.2)
[2022-01-02] MEDS: TIOTROPIUM/OLODATEROL HCL (STIOLTO) 4 GM INHALER IH SCH (16:41)
[2022-01-02] MEDS: PARoxetine HCL 20 MG TABLET PO SCH (21:36)
[2022-01-02] MEDS: ROSUVASTATIN CA 10 MG TABLET PO SCH (21:36)
[2022-01-03] MEDS: NYSTATIN 500,000 UNITS/5 ML SUSPENSION PO SCH ×4 (01:19→18:39)
[2022-01-03] MEDS: methylPREDNISolone NA SUCC 40 MG/1 ML VIAL IVPUSH SCH ×3 (05:27→21:08)
[2022-01-03 07:10] LABS: BASO % 0.3 % (0-2.0); HEMATOCRIT 43.7 % (32.4-45.2); LYMPH % 3.6 % (8-40); MCH 29.9 pg (25.7-33.7); MCHC 32.2 g/dl (32.0-36.0); MEAN CELL VOLUME 93.1 fl (80-96); MEAN PLT VOLUME 9.3 fl (7.5-11.1); MONO % 7.3 % (3.8-10.2); NEUT % 88.8 % (42.8-82.8); PLATELET COUNT 296 10^3/uL (134-434); RBC 4.69 M/mm3 (3.60-5.2); RDW 13.7 % (11.6-15.6)
[2022-01-03 07:37] LABS: CALCIUM 8.6 mg/dL (8.5-10.1)
[2022-01-03 07:38] LABS: BLOOD UREA NITROGEN 26.9 mg/dL (7-18); MAGNESIUM 2.7 mg/dL (1.8-2.4)
[2022-01-03 07:41] LABS: CREATININE 0.6 mg/dL (0.55-1.3)
[2022-01-03 07:42] LABS: TOT PROT 6.2 g/dl (6.4-8.2)
[2022-01-03 07:43] LABS: BILIRUBIN,TOTAL 0.4 mg/dL (0.2-1)
[2022-01-03] MEDS: ALBUTEROL SO4 0.083% IH SOL 2.5 MG/3 ML VIAL.NEB. NEB SCH ×3 (07:49→20:10)
[2022-01-03] MEDS: ENOXAPARIN NA (PORCINE) 40 MG/0.4 ML DISP.SYRIN SQ SCH (10:38)
[2022-01-03] MEDS: PANTOPRAZOLE 40 MG TABLET PO SCH (10:39)
[2022-01-03] MEDS: VALSARTAN 40 MG TABLET PO SCH (10:39)
[2022-01-03] MEDS: BUDESONIDE/FORMETEROL FUMARATE 160/4.5 mcg INHALER IH SCH ×2 (10:50→22:21)
[2022-01-03 13:08] LABS: SARS-CoV-2 NAA Not Detected (Not Detected)
[2022-01-03] MEDS: TIOTROPIUM/OLODATEROL HCL (STIOLTO) 4 GM INHALER IH SCH (18:42)
[2022-01-03] MEDS: PARoxetine HCL 20 MG TABLET PO SCH (21:08)
[2022-01-03] MEDS: ROSUVASTATIN CA 10 MG TABLET PO SCH (21:08)
[2022-01-04] MEDS: NYSTATIN 500,000 UNITS/5 ML SUSPENSION PO SCH ×3 (01:35→11:53)
[2022-01-04] MEDS: methylPREDNISolone NA SUCC 40 MG/1 ML VIAL IVPUSH SCH ×2 (05:49→14:12)
[2022-01-04] MEDS: ALBUTEROL SO4 0.083% IH SOL 2.5 MG/3 ML VIAL.NEB. NEB SCH ×2 (08:30→14:36)
[2022-01-04] MEDS: VALSARTAN 40 MG TABLET PO SCH (09:01)
[2022-01-04] MEDS: PANTOPRAZOLE 40 MG TABLET PO SCH (09:01)
[2022-01-04] MEDS: BUDESONIDE/FORMETEROL FUMARATE 160/4.5 mcg INHALER IH SCH (09:01)
[2022-01-04] MEDS: ENOXAPARIN NA (PORCINE) 40 MG/0.4 ML DISP.SYRIN SQ SCH (09:01)
[2022-01-04 12:30] LABS: HEMATOCRIT 45.2 % (32.4-45.2); HEMOGLOBIN 14.4 GM/dL (10.7-15.3); MCH 29.8 pg (25.7-33.7); MEAN CELL VOLUME 93.4 fl (80-96); PLATELET COUNT 303 10^3/uL (134-434); RBC 4.84 M/mm3 (3.60-5.2); RDW 13.8 % (11.6-15.6); WHITE BLOOD COUNT 15.9 K/mm3 (4.0-10.0)
[2022-01-04 12:48] LABS: CALCIUM 8.9 mg/dL (8.5-10.1)
[2022-01-04 12:49] LABS: ALBUMIN 3.2 g/dl (3.4-5.0); BLOOD UREA NITROGEN 26.6 mg/dL (7-18); MAGNESIUM 2.4 mg/dL (1.8-2.4)
[2022-01-04 12:51] LABS: CREATININE 0.7 mg/dL (0.55-1.3)
[2022-01-04 12:53] LABS: BILIRUBIN,TOTAL 0.5 mg/dL (0.2-1); TOT PROT 6.3 g/dl (6.4-8.2)
[2022-01-04 13:22] LABS: ANISOCYTOSIS 0; HELMET CELLS 0; HOWELL-JOLLY BODIES 0; MACROCYTOSIS 0; OVALOCYTE 0; ROULEAU 0; SICKELED CELLS 0; TARGET CELLS 0; TEAR DROP CELLS 0; TOXIC GRANULATION 0
[2022-01-04 13:31] VITALS: BP 129/72; PULSE 95; TEMP 99.1
[2022-01-04] MEDS: TIOTROPIUM/OLODATEROL HCL (STIOLTO) 4 GM INHALER IH SCH (16:06)
== END 2022-01-04 18:02 | DRG 190 ==
LOC: JER 12:49 → JERBED 15:06 → J4S 18:59
PROVIDERS: ADMIT Internal Medicine; ATTEND Nurse Practitioner Family
DX: J44.1 Chronic obstructive pulmonary disease with (acute) exacerbation (principal); J96.21 Acute and chronic respiratory failure with hypoxia; J96.22 Acute and chronic respiratory failure with hypercapnia; I27.20 Pulmonary hypertension, unspecified; I10 Essential (primary) hypertension; E78.5 Hyperlipidemia, unspecified; J10.1 Influenza due to other identified influenza virus with other respiratory manifestations; F32.A Depression, unspecified
CPT/HCPCS: 36415; 36600; 71045-TC-FY; 80048; 80053; 82803; 83735; 83880; 84100; 84484; 85025; 87040; 87804; 93005; 93010; 94640; 94660; 97116-GP; 97161-GP; 99285-25; C9803-CS; J3535; U0003; U0005